=== PATIENT | male | born 1960 | race Caucasian/White ===

== ENCOUNTER → 2016-04-28 | Outpatient (CLI) | payer MEDICARE ==
[~2016-04-28] MED LIST: CITA-36 PO; CLOP75TA28 PO; GABA300C8 PO; HYDR50CA PO; INSREGI SC; MET500T PO; PANT40T PO; POTA20TA53 PO; RANI1TAB6 PO; TRAM50TA2 PO; TRAZADONE PO; VER40T PO; [UNRECOGNIZED DRUG - CODE]
[2016-04-28 16:31] LABS: Albumin 2.2 g/dL (3.4-5.0); BUN/Creatinine Ratio 17.2; Bilirubin, Total 0.4 mg/dL (0.2-1.0); Calcium 8.1 mg/dL (8.5-10.1); Potassium 4.5 mmol/L (3.5-5.1); Total Protein 5.9 g/dL (6.4-8.2)
[2016-04-28 16:43] LABS: Basophils # (auto) 0 uL; Basophils % (auto) 0.3 % (0.0-2.0); Eosinophils # (auto) 0.2 uL; Eosinophils % (auto) 1.3 % (0.0-7.0); Hematocrit 36.8 % (41.0-53.0); Hemoglobin 11.8 g/dL (13.5-17.5); Lymphocytes % (auto) 28.9 % (10.0-50.0); Mean Corpuscular Hemoglobin 28.2 pg (28.0-32.0); Mean Corpuscular Hgb Conc. 31.9 g/dL (32.0-36.0); Mean Corpuscular Volume 88.3 fL (80.0-100.0); Mean Platelet Volume 7.1 fL (7.4-10.4); Monocytes # (auto) 1.3 uL; Monocytes % (auto) 7.7 % (0.0-12.0); Neutrophils # (auto) 10.8 uL; Neutrophils % (auto) 61.8 % (37.0-80.0); Platelet Count (auto) 677 10^3/uL (140-450); Red Cell Distribution Width 18.3 % (11.6-16.0); White Blood Cell 17.5 10^3/uL (4.4-10.8)
== END | disposition home or self-care (01) ==
LOC: LAB 15:40
PROVIDERS: ATTEND Internal Medicine
DX: I10 Essential (primary) hypertension (principal); E11.9 Type 2 diabetes mellitus without complications; Z89.511 Acquired absence of right leg below knee
CPT/HCPCS: 36415; 80053; 83036; 85025

== ENCOUNTER → 2016-06-26 | Outpatient (CLI) | payer MEDICARE | END | disposition home or self-care (01) | LOC: LAB 10:52 | PROVIDERS: ATTEND Internal Medicine | DX: Z86.19 Personal history of other infectious and parasitic diseases (principal); Z87.19 Personal history of other diseases of the digestive system | CPT/HCPCS: 87493 ==

== ENCOUNTER → 2016-07-03 | Outpatient (CLI) | payer MEDICARE | END | disposition home or self-care (01) | LOC: LAB 15:51 | PROVIDERS: ATTEND Internal Medicine | DX: T81.4XXS Infection following a procedure, sequela (principal) | CPT/HCPCS: 87205 ==